=== PATIENT | male | born 1960 | race Caucasian/White ===

== ENCOUNTER → 2018-12-08 | Outpatient (CLI) | payer MEDICARE, OTHER ==
[~2018-12-08] MED LIST: REGADENOSON 0.4 MG/5 ML SYRINGE IV ONE
--- NOTE | 2018-12-08 11:52 | EST ---
EXERCISE STRESS AGE: 58 SEX: M HT: 6'0" WT: 217 PROTOCOL: Lexiscan Cardiolite Stress Test HEART RATE REST: 84 BLOOD PRESSURE REST: 110/69 MAXIMUM HEART RATE ACHIEVED: 96 MAXIMUM BLOOD PRESSURE: 104/67 INDICATIONS: Hypertension, coronary artery disease CLINICAL INFORMATION: Baseline EKG revealed normal sinus rhythm without significant ST-T changes. With Lexiscan administration, heart rate changed from 84-96 beats per minute. blood pressure changed from 110/69 to 104/67, and came back to baseline. Patient did not have any significant symptoms. By EKG criteria, this is an unremarkable Lexiscan stress test. The nuclear scan results which are more pertinent will be reported by the radiologist. MMODL / IJN: [id number] /
--- NOTE | 2018-12-08 13:48 | NM ---
EXAMINATION TYPE: NM stress lexiscan cardiolite DATE OF EXAM: 12/08/2018 COMPARISON: NONE HISTORY: Precordial chest pain and abnormal EKG TECHNIQUE: After the intravenous administration of 10.5 mCi Tc 99m Sestamibi - Cardiolite resting SP ECT images acquired 45 minutes post injection. The patient received 0.4mg Lexiscan, 26.2 mCi Tc 99m Sestamibi - Stress images obtained [address] injection FINDINGS: Review of stress and rest SPECT images demonstrates fixed decreased perfusion along the inferior wall which may reflect diaphragmatic attenuation artifact versus remote insult. There is stress-induced d ecreased perfusion noted involving the anteroseptal wall. Correlate for stress-induced ischemia. [place] d analysis shows normal wall motion with an estimated left ventricular ejection fraction of 57 %. IMPRESSION: There is stress-induced decreased perfusion noted involving the anteroseptal wall. Correlate for stre ss-induced ischemia.
== END | disposition home or self-care (01) ==
LOC: RADNMMAIN 07:42
PROVIDERS: ATTEND Family Medicine
DX: R94.39 Abnormal result of other cardiovascular function study (principal); I25.84 Coronary atherosclerosis due to calcified coronary lesion
CPT/HCPCS: 93017; 78452; A9500; J2785

== ENCOUNTER → 2018-12-24 | Outpatient (CLI) | payer MEDICARE ==
[2018-12-24 10:43] LABS: HCT 45.1 % (39.0-53.0); HGB 15.2 gm/dL (13.0-17.5); MCH 33.5 pg (25.0-35.0); MCHC 33.8 g/dL (31.0-37.0); Macrocytosis Slight; Mean Platelet Volume 6.7; Platelet Count 191 k/uL (150-450); RBC 4.55 m/uL (4.30-5.90); RDW 14.7 % (11.5-15.5); WBC 6.6 k/uL (3.8-10.6)
[2018-12-24 10:53] LABS: Potassium 4.8 mmol/L (3.5-5.1)
== END | disposition home or self-care (01) ==
LOC: LABPAT 09:39
PROVIDERS: ATTEND Internal Medicine Cardiovascular Disease
DX: Z01.812 Encounter for preprocedural laboratory examination (principal); I10 Essential (primary) hypertension; I25.10 Atherosclerotic heart disease of native coronary artery without angina pectoris
CPT/HCPCS: 36415; 80051; 82565; 84520; 85027

== ENCOUNTER 2019-01-06 07:46 | Day surgery (SDC) | payer MEDICARE ==
[2018-12-30 12:48] VITALS: BMI 31.1
[~2019-01-06 07:46] MED LIST changes: +ALPRAZolam 0.25 MG TAB PO PRN; +ASPIRIN 325 MG TAB PO ONE; -REGADENOSON 0.4 MG/5 ML SYRINGE IV ONE; +SODIUM CHLORIDE 0.9% 1,000 ML in EMPTY BAG 1 BAG IV ONE
[2019-01-06 08:57] LABS: Glucose,Whole Blood 149 mg/dL (75-99)
[2019-01-06 09:01] VITALS: PULSE 80; TEMP 98.1
[2019-01-06] MEDS ORDERED: IV FLUID CONTINUATION 950 ML IV ONE (09:10)
[2019-01-06] MEDS ORDERED: MIDAZOLAM (PF) 2 MG/2 ML VIAL IV ONE (09:34)
[2019-01-06] MEDS: MIDAZOLAM (PF) 2 MG/2 ML VIAL IV ONE ×2 (09:35→09:39)
[2019-01-06] MEDS ORDERED: LIDOCAINE 1% INJ 10MG/ML (20 ML MDV) SQ ONE ×2 (09:36→09:38)
[2019-01-06] MEDS ORDERED: RX INFO: IV CONTRAST WAS GIVEN 1 EACH MISC MISCELLANE PRN (10:04)
[2019-01-06] MEDS ORDERED: IOPAMIDOL-370 100ML BTL INJ ONE (10:06)
--- NOTE | 2019-01-06 10:29 | CC ---
CARDIAC CATHETERIZATION REPORT INDICATION: Abnormal stress test in a patient with multiple coronary risk factors with ischemia involving the anteroseptal wall. PROCEDURE NOTE: After obtaining informed consent, left heart catheterization and coronary angiogram were performed via the right femoral artery using standard Laura catheters. Patient tolerated the procedure well without any obvious immediate complications. A femoral angiogram was performed and decision was made for manual hemostasis as we were entering into the artery below the bifurcation. The patient received moderate conscious sedation. Total sedation time was 19 minutes. FINDINGS: 1. Left main coronary artery appears calcified but it is a small vessel, divides into LAD and circumflex coronary artery. They almost seem to have separate origins. 2. Circumflex coronary artery is a large dominant vessel that shows mild atherosclerotic plaque at the origin of a PLV branch. 3. LAD wraps around the apex of the heart shows some mild atherosclerotic plaque in its midportion without any focal hemodynamically significant lesion. 4. Right coronary artery is a small nondominant vessel that shows mild atherosclerotic plaque in the proximal part. CONCLUSION: Mild nonobstructive coronary artery disease. PLAN: Patient's stress test is positive stress test. His management is going to be in the form of risk factor modification and optimal medical therapy. MMODL / IJN: [id number] /
[2019-01-06 13:26] VITALS: RESP 20
[2019-01-06 17:05] VITALS: BP 124/77
== END 2019-01-06 17:00 | disposition home or self-care (01) ==
LOC: CATHCVL 07:46
PROVIDERS: ATTEND Internal Medicine Cardiovascular Disease
DX: I25.10 Atherosclerotic heart disease of native coronary artery without angina pectoris (principal); I10 Essential (primary) hypertension; E11.9 Type 2 diabetes mellitus without complications; E78.5 Hyperlipidemia, unspecified; Z87.891 Personal history of nicotine dependence; Z79.84 Long term (current) use of oral hypoglycemic drugs; Z79.82 Long term (current) use of aspirin; Z79.899 Other long term (current) drug therapy; Z88.0 Allergy status to penicillin
CPT/HCPCS: 93454; C1894; C1769; J2001; Q9967; J2250

== ENCOUNTER 2020-05-31 16:25 | Emergency (ER) | payer MEDICARE ==
[2020-05-31 16:31] VITALS: RESP 18
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
--- NOTE | 2020-05-31 17:25 | XR ---
EXAMINATION TYPE: XR Hip RT and AP Pelvis DATE OF EXAM: 05/31/2020 COMPARISON: NONE HISTORY: Right hip pain status post fall. TECHNIQUE: A single AP view of the pelvis is obtained. Two views of the right hip are obtained. FINDINGS: There is a moderately varus angulated basicervical fracture of the right femoral neck. No evidence of dislocation. No radiopaque foreign body. The bilateral hip joints are otherwise grossly preserved. IMPRESSION: Right femoral neck fracture.
[2020-05-31] MEDS ORDERED: MORPHINE SULFATE 4 MG/ML SYRINGE IVP STA (18:58)
[2020-05-31 19:42] VITALS: BP 136/78; PULSE 79; TEMP 98
== END 2020-05-31 19:42 | disposition other institution (70) ==
LOC: EC 16:25
DX: S72.001A Fracture of unspecified part of neck of right femur, initial encounter for closed fracture (principal); Z88.0 Allergy status to penicillin; Z89.511 Acquired absence of right leg below knee; X50.1XXA Overexertion from prolonged static or awkward postures, initial encounter; Y93.01 Activity, walking, marching and hiking
CPT/HCPCS: 73502; 99284; 96374; J2270

== ENCOUNTER → 2020-11-28 | Outpatient (CLI) | payer MEDICARE ==
--- NOTE | 2020-11-28 16:02 | BD ---
EXAMINATION TYPE: Axial Bone Density DATE OF EXAM: 11/28/2020 COMPARISON: NONE CLINICAL HISTORY: Rheumatoid arthritis Height: 5 FT 11 1/2 IN Weight: 218 FRAX RISK QUESTIONS: Alcohol (3 or more units per day): NO Family History (Parent hip fracture): NO Glucocorticoids (More than 3mos): NO (Ex: prednisone, prednisolone, methylprednisolone, dexamethasone, and hydrocortisone). History of Fracture in Adulthood: YES Secondary Osteoporosis: 1. Type 1 Diabetes: NO 2. Hyperthyroidism: NO 3. Menopause before 45: NA 4. Malnutrition: NO 5. Chronic liver disease: NO Rheumatoid Arthritis: YES Current Tobacco Use: NO RISK FACTORS HISTORY OF: Hip Fracture (Right/Left): RT HIP When: 2020 Spine Fracture: NO When: NO History of Wrist Fracture: NO Surgery to Spine/Hip(right/left)/Wrist (right/left): RT FX PLUS REPLACEMENT When: MAY 2020 Family History of Osteoporosis: NO Active: YES Diet low in dairy products/other sources of calcium: NO Postmenopausal woman: NA Take estrogen and/or progesterone medications: NA Lost more than 2 inches in height since high school: NO MEDICATIONS: Additional Medications: METHOTREXATE, METFORMIN, INFO SHANNA,FOLIC ACID, ENALAPRIL, ATORVASTATIN,ASPIRIN ,MULTI, Additional History: EXAM MEASUREMENTS: Bone mineral densitometry was performed using the [employer] System. Bone mineral density as measured about the Lumbar spine is: ----- L1-L4(G/cm2): 1.079 T Score Values are as follows: ----- L2: -1.2 ----- L3: -0.9 ----- L4: -0.6 ----- L1-L4: -0.8 BASELINE Bone mineral density about the L hip (g/cm2): 0.935 T Score values are as follows: -----L Neck: -0.7 -----L Total: 0.5 BASELINE IMPRESSION: Normal bone mineral density. NOTE: T-SCORE=SD OF THE YOUNG ADULT MEAN.
== END | disposition home or self-care (01) ==
LOC: RADBDWWP 08:35
PROVIDERS: ATTEND Family Medicine
DX: M06.9 Rheumatoid arthritis, unspecified (principal); M85.88 Other specified disorders of bone density and structure, other site
CPT/HCPCS: 77080

== ENCOUNTER → 2022-09-03 | Outpatient (CLI) | payer MEDICARE ==
--- NOTE | 2022-09-03 11:04 | CTL ---
EXAMINATION TYPE: CT Low Dose Lung DATE OF EXAM ORDERED: 09/03/2022 HISTORY: Z87.891. Lung cancer screening CT DLP: 101.[address] CTDI: 2.6 mGy Automated exposure control for dose reduction was used. SCREENING VISIT: First screening visit COMPARISON: None TECHNIQUE: Low dose computed tomography scan was performed through the chest at 1 mm thick sections a nd reconstructed images in multiple planes at 1 mm and [address] DIAGNOSTIC QUALITY: Satisfactory FINDINGS: LUNG NODULES: Spiculated 4.1 x 3.3 cm mass along the medial aspect of the right upper lobe abutting the azygous vei n (series 4, image 22). Left lower lobe 2 mm pulmonary nodule (series 3, image 185). LUNGS: COPD: Severity: Moderate centrilobular emphysematous changes which is most pronounced within the righ t upper lobe. Fibrosis: Severity: Scattered reticular pulmonary fibrotic changes throughout the lungs most pronounc ed involving the anterior aspect of the left upper lobe and medial aspect of the right upper lobe. Lymph nodes: No lymph nodes greater than 1 cm short axis Other findings: None RIGHT PLEURAL SPACE: Effusion: None Calcification: None Thickening: None Pneumothorax: None LEFT PLEURAL SPACE: Effusion: None Calcification: None Thickening: None Pneumothorax: None HEART: Heart Size: Normal Coronary Calcification: Moderate Pericardial Effusion: None OTHER FINDINGS: Upper abdomen: Post cholecystectomy changes. Bony thorax: No acute osseous abnormality. No aggressive osseous lesions. Supraclavicular region: None Other: None IMPRESSION: 1. Medial right upper lobe spiculated 4.1 cm mass highly concerning for malignancy. Further evaluatio n with CT chest with and without contrast or PET/CT is recommended. 2. Left lower lobe 2 mm pulmonary nodule. 3. Moderate COPD and pulmonary fibrotic changes. CT LUNG RAD AND CT CHEST RECOMMENDATION: Lung-Rad 4B or 4X Very Suspicious: Follow-up Chest CT with o r without contrast or PET/CT and/or tissue sampling. PET/CT may be used when there is a > 8 mm solid component. S Modifier (other clinically significant findings): None A Yellow level critical message alert has been initiated for Sarah Shelton MD via the [employer] Critical Results System on 09/03/2022 11:02 AM. This message alert has been sent to Sarah Shelton MD via the preferences provided by the clinician for the receipt of Radiology Critical Findings. Jason almanzar ID [id number].
== END | disposition home or self-care (01) ==
LOC: RADCTMAIN 09:21
PROVIDERS: ATTEND Internal Medicine
DX: Z12.2 Encounter for screening for malignant neoplasm of respiratory organs (principal); J44.9 Chronic obstructive pulmonary disease, unspecified; J84.10 Pulmonary fibrosis, unspecified; Z87.891 Personal history of nicotine dependence
CPT/HCPCS: 71271

== ENCOUNTER → 2022-09-14 | Outpatient (CLI) | payer MEDICARE ==
--- NOTE | 2022-09-14 15:43 | PE ---
EXAMINATION TYPE: PET CT fusion skull to thigh DATE OF EXAM: 09/14/2022 COMPARISON: Low-dose lung screening CT September 03, 2022 HISTORY: Solitary pulmonary nodule, abnormal CT. TECHNIQUE: Following the intravenous administration of 13.2 mCi of F-18 FDG, whole body images are p erformed from the skull base to the midthigh. Images are reviewed on the computer in the coronal, ax ial, and sagittal planes. Reconstructed rotating images are created on independent workstation and r eviewed on the computer. A localization and attenuation correction CT is performed in conjunction w ith the PET scan. Blood glucose level equals 142 SCAN: Initial Scan FINDINGS: SKULL BASE AND NECK: No areas of abnormal hypermetabolic uptake. CHEST, MEDIASTINUM, AND HILAR REGION: Background moderate to advanced underlying emphysematous change is redemonstrated. Persistent spiculated 4.1 x 2.8 cm right suprahilar mass has abnormal hypermetabo lic uptake, max SUV is 5.24 on axial image 66. No additional areas of abnormal hypermetabolic uptake including prominent but subcentimeter thoracic lymph nodes. ABDOMEN AND PELVIS: No abnormal hypermetabolic adrenal masses. Nonspecific bowel uptake. Normal excre tion. No areas of abnormal hypermetabolic uptake. OSSEOUS STRUCTURES: No areas of abnormal hypermetabolic uptake. OTHER CT: Severe three-vessel coronary artery calcifications. Cholecystectomy clips are present. Norm al-appearing appendix. Few diverticula in the sigmoid colon. Metallic hardware from right right hip s urgery is present. IMPRESSION: Abnormal hypermetabolic uptake in the spiculated right suprahilar mass consistent with ne oplasm. No suspicious adenopathy or metastatic disease seen.
== END | disposition home or self-care (01) ==
LOC: RADPETMAIN 08:19
PROVIDERS: ATTEND Internal Medicine Critical Care Medicine
DX: R91.1 Solitary pulmonary nodule (principal)
CPT/HCPCS: 78815; A9552

== ENCOUNTER → 2022-10-11 | Outpatient (CLI) | payer MEDICARE ==
[2022-10-11 15:51] LABS: African American GFR (CKD) >90 (>60 ml/min/1.73 sqM); Blood Urea Nitrogen 20 mg/dL (9-20); Non-African American GFR(CKD) >90 (>60 ml/min/1.73 sqM)
--- NOTE | 2022-10-12 13:44 | CT ---
EXAMINATION TYPE: CT chest w con DATE OF EXAM: 10/12/2022 COMPARISON: PET CT 09/14/[address] 09/03/2022 HISTORY: Lung mass. Dr. Ramos wants to perform surgery but concerned by proximity of vessel to mass. CT DLP: 498.50 mGycm Automated exposure control for dose reduction was used. CONTRAST: CT scan of the chest is performed with IV Contrast, patient injected with 100 mL of Isovue 300. FINDINGS: LUNGS: 4.3 x 2.4 x 3.5 cm spiculated right suprahilar mass consistent with neoplasm. Right upper lobe pulmonary arterial branch directly abuts the right lateral margin of the mass. The anterior margin o f the mass abuts the posterior wall of the superior vena cava without definite infiltration at this t radha. No additional masses are present. There is upper lobe emphysematous change which is moderate in degree. Mild scattered subpleural fibrosis is seen bilaterally. No evidence for pleural effusion. MEDIASTINUM: Prevascular space adenopathy measuring 1.1 cm as well as subcentimeter AP window lymph n odes. Low right paratracheal lymph node measures 1 cm in short axis. Subcarinal lymph node measures 9 mm in short axis. Thoracic aorta is of normal caliber. The heart is not enlarged. UPPER ABDOMEN: No significant abnormality appreciated. OTHER: No additional significant abnormality is seen. IMPRESSION: 1. Right suprahilar spiculated mass compatible with neoplasm. Mild mediastinal adenopathy.
== END | disposition home or self-care (01) ==
LOC: RADCTMAIN 15:15
PROVIDERS: ATTEND Internal Medicine Critical Care Medicine
DX: R91.1 Solitary pulmonary nodule (principal); R59.0 Localized enlarged lymph nodes
CPT/HCPCS: 82565; 84520; 71260; 36415; Q9967

== ENCOUNTER → 2022-11-15 | Outpatient (CLI) | payer MEDICARE ==
--- NOTE | 2022-11-15 15:40 | MR ---
EXAMINATION TYPE: MR brain wo/w con DATE OF EXAM: 11/15/2022 3:31 PM CLINICAL INDICATION:Male, 62 years old with history of C34.11 LUNG CANCER; Lung cancer, some memory l oss COMPARISON: None TECHNIQUE: Multi planar, multi sequence imaging was performed through the brain including: T1, T2, In version recovery, susceptibility weighted imaging and gradient echo imaging and Diffusion weighted im aging. The patient was then given intravenous contrast and multi planar, T1 fat-saturation images wer e obtained. IV Contrast: 10 cc Gadavist FINDINGS: The cardozo-white junctions, ventricular system, basal cisterns appear unremarkable. Diffusion-weighted imaging shows no evidence of restricted diffusion to suggest acute/subacute infarct. Intracranial art erial flow voids are maintained. Midline structures show no abnormality. The susceptibility weighted images do not reveal any evidence for micro-hemorrhage. After administration of gadolinium, no abnorm al enhancement is seen. The bone marrow signal is within normal limits. Paranasal sinuses and mastoid air cells: Mucosal thickening predominantly of the ethmoid air cells on the right greater than left and frontal sinus on the right. Visualized orbits: Orbital contents are intact. IMPRESSION: No evidence of intracranial mass, acute/subacute infarct, or abnormal enhancement.
== END | disposition home or self-care (01) ==
LOC: RADMRIMAIN 14:31
PROVIDERS: ATTEND Internal Medicine Hematology & Oncology
DX: C34.11 Malignant neoplasm of upper lobe, right bronchus or lung (principal)
CPT/HCPCS: 70553; A9585

== ENCOUNTER → 2022-12-31 | Outpatient (CLI) | payer MEDICARE ==
[2022-12-31 13:03] LABS: African American GFR (CKD) >90 (>60 ml/min/1.73 sqM); Blood Urea Nitrogen 32 mg/dL (9-20); Non-African American GFR(CKD) >90 (>60 ml/min/1.73 sqM)
--- NOTE | 2022-12-31 13:36 | CT ---
EXAMINATION TYPE: CT angio chest DATE OF EXAM: 12/31/2022 1:26 PM COMPARISON: 10/11/2022. HISTORY: Shortness of breath with known lung cancer. CT DLP: 380.6 mGycm Automated exposure control for dose reduction was used. CONTRAST: CTA scan of the thorax is performed with IV Contrast, patient injected with 100 mL of Isovue 370, pul monary embolism protocol. . FINDINGS: Mediastinum and Mikayla: Right suprahilar mass measuring 4.3 x 2.1 cm in diameter is very similar in siz e to the previous examination. Pleural and Pericardial spaces: There are no pleural or pericardial effusions. Upper Abdomen: The visualized upper abdomen is unremarkable. Cardiovascular: There is mild vascular calcification throughout the thoracic aorta without evidence o f aneurysmal dilation or dissection. There are moderate diffuse coronary artery calcifications. Pulmonary Artery: There are no filling defects in the pulmonary arteries. Lung Parenchyma and Airways: There is severe diffuse centrilobular emphysema. Bones: No fracture or aggressive osseous lesion. IMPRESSION: 1. No evidence of pulmonary embolism. 2. No evidence of thoracic aortic aneurysm or dissection. 3. Unchanged right suprahilar mass compatible with malignancy. 2. Severe emphysema. 3. Moderate coronary artery calcifications.
== END | disposition home or self-care (01) ==
LOC: RADCTMAIN 12:14
PROVIDERS: ATTEND Internal Medicine Hematology & Oncology
DX: C34.11 Malignant neoplasm of upper lobe, right bronchus or lung (principal); D61.810 Antineoplastic chemotherapy induced pancytopenia; I25.10 Atherosclerotic heart disease of native coronary artery without angina pectoris; J43.2 Centrilobular emphysema; M06.9 Rheumatoid arthritis, unspecified; R00.0 Tachycardia, unspecified; R22.2 Localized swelling, mass and lump, trunk; Z71.3 Dietary counseling and surveillance
CPT/HCPCS: 82565; 84520; 71275; 36415; Q9967

== ENCOUNTER → 2023-01-25 | Outpatient (CLI) | payer MEDICARE ==
--- NOTE | 2023-01-25 11:16 | PE ---
EXAMINATION TYPE: PET CT fusion skull to thigh DATE OF EXAM: 01/25/2023 CLINICAL INDICATION:Male, 62 years old with history of C34.11 lung NEOPLASM OF UPPER; TECHNIQUE: Following the intravenous administration of 11.71 mCi of F-18 FDG, whole body images are performed from the skull base to the midthigh. Images are reviewed on the computer in the coronal, axial, and sagittal planes. Reconstructed rotating images are created on independent workstation and reviewed on the computer. A non-contrast CT is performed in conjunction with the PET scan. Glucose level 154 mg/dL CT DLP: 506 mGycm, Automated exposure control for dose reduction was used. COMPARISON: CT 12/31/2022, PET/CT 09/06/2022, FINDINGS: Mediastinal SUV mean is 1.4. Hepatic parenchyma SUV mean is 2.3 SKULL BASE AND NECK: No suspicious radiotracer activity. CHEST, MEDIASTINUM, AND HILAR REGION: * Spiculated mass near the right superior perihilar region now measuring 3.2 x 3.6 cm previously 3.2 x 4.1 cm. Max SUV 9.9, previously 5.2. ABDOMEN AND PELVIS: No suspicious radiotracer activity. MUSCULOSKELETAL STRUCTURES: No suspicious radiotracer activity. OTHER CT: Severe three-vessel coronary artery calcifications. Moderate to severe emphysema changes wo rse in the right lung apex. Cholecystectomy clips are present. Normal-appearing appendix. Few diverti cula in the sigmoid colon. Metallic hardware from right right hip surgery is present. IMPRESSION: Interval increase in metabolic activity of the right perihilar mass. However, there minimal decrease in size on today's exam. No additional sites of abnormal FDG activity visualized. No lymphadenopathy.
== END | disposition home or self-care (01) ==
LOC: RADPETMAIN 08:04
PROVIDERS: ATTEND Internal Medicine Hematology & Oncology
DX: C34.11 Malignant neoplasm of upper lobe, right bronchus or lung (principal); R91.8 Other nonspecific abnormal finding of lung field
CPT/HCPCS: 78815; A9552

== ENCOUNTER → 2023-07-05 | Outpatient (CLI) | payer MEDICARE ==
[2023-07-05 11:46] LABS: African American GFR (CKD) >90 (>60 ml/min/1.73 sqM); Blood Urea Nitrogen 26 mg/dL (9-20); Non-African American GFR(CKD) >90 (>60 ml/min/1.73 sqM)
--- NOTE | 2023-07-05 12:48 | CT ---
Exam: CT Chest with contrast. Date: 07/05/2023. Comparison: 12/31/2022. History: Evaluate for metastatic disease. Technique: CT examination of the chest was performed following the intravenous administration of 100 mL of Isovue-300. Coronal and sagittal reformats were performed. CT dose lowering techniques were us ed, to include: automated exposure control, adjustment for patient size, and/or use of iterative rosalba nstruction. FINDINGS: Mediastinum and Mikayla: There is no axillary, mediastinal or hilar lymphadenopathy. Pleural and Pericardial spaces: There is a small right pleural effusion. Upper Abdomen: The visualized upper abdomen is unremarkable. Cardiovascular: There is mild vascular calcification within the thoracic aorta without evidence of an eurysmal dilation or dissection. There are severe diffuse coronary artery calcifications. Pulmonary Artery: There are no central pulmonary arterial abnormalities. The examination was not per formed to evaluate for pulmonary embolism. Lung Parenchyma and Airways: There appears to been a prior right upper lobectomy. There is moderate e mphysematous changes otherwise seen. There are no new pulmonary nodule seen in this time. Scattered i nflammatory airway changes are noted. Bones: No fracture or aggressive osseous lesion. IMPRESSION: 1. Prior surgical changes of right upper lobectomy with no residual or recurrent disease identified t his time. 2. Small right pleural effusion with thickened wall with some enhancement. There does appear to be so me foci of air within the pleural fluid posteriorly as this may be loculated. Infection or malignant effusion would be a possibility. 3. Emphysema. 4. Severe coronary artery calcifications.
== END | disposition home or self-care (01) ==
LOC: RADCTMAIN 10:26
PROVIDERS: ATTEND Internal Medicine Hematology & Oncology
DX: J90 Pleural effusion, not elsewhere classified (principal); C34.11 Malignant neoplasm of upper lobe, right bronchus or lung; J94.8 Other specified pleural conditions; J43.9 Emphysema, unspecified; I25.10 Atherosclerotic heart disease of native coronary artery without angina pectoris; D61.810 Antineoplastic chemotherapy induced pancytopenia; M06.9 Rheumatoid arthritis, unspecified; Z71.3 Dietary counseling and surveillance; Z90.2 Acquired absence of lung [part of]
CPT/HCPCS: 82565; 84520; 71260; 36415; Q9967

== ENCOUNTER → 2023-10-04 | Outpatient (CLI) | payer MEDICARE ==
[2023-10-04 11:31] LABS: African American GFR (CKD) 73 (>60 ml/min/1.73 sqM); Blood Urea Nitrogen 25 mg/dL (9-20); Non-African American GFR(CKD) 63 (>60 ml/min/1.73 sqM)
--- NOTE | 2023-10-04 12:04 | CT ---
EXAMINATION TYPE: CT chest w con DATE OF EXAM: 10/04/2023 COMPARISON: 07/05/2023 HISTORY: Lung ca follow up CT DLP: 444.60 mGycm Automated exposure control for dose reduction was used. CONTRAST: CT scan of the chest is performed with IV Contrast, patient injected with 100 mL of Isovue 300. FINDINGS: LUNGS: Stable bandlike density right upper lobe with adjacent surgical clips. Stable right lower lobe pleural thickening. Small effusion seen previously persists although appears smaller in size. No new nodules or masses seen. There are scattered subpleural fibrosis and paraseptal emphysema. MEDIASTINUM: There are no greater than 1 cm hilar or mediastinal lymph nodes. Severe coronary artery disease. No pericardial effusion is seen. Thoracic aorta is of normal caliber. The heart is not enl arged. UPPER ABDOMEN: No significant abnormality appreciated. OTHER: No additional significant abnormality is seen. IMPRESSION: 1. Partial right upper lobectomy change stable. No evidence for residual or recurrent disease. 2. Small right-sided pleural effusion with associated pleural thickening is slightly improved. 3. Emphysematous changes.
== END | disposition home or self-care (01) ==
LOC: RADCTMAIN 10:48
PROVIDERS: ATTEND Internal Medicine Hematology & Oncology
DX: J90 Pleural effusion, not elsewhere classified (principal); C34.11 Malignant neoplasm of upper lobe, right bronchus or lung; J92.9 Pleural plaque without asbestos; J43.9 Emphysema, unspecified; M06.9 Rheumatoid arthritis, unspecified; D61.810 Antineoplastic chemotherapy induced pancytopenia; Z71.3 Dietary counseling and surveillance; Z90.2 Acquired absence of lung [part of]
CPT/HCPCS: 82565; 84520; 71260; 36415; Q9967

== ENCOUNTER → 2024-01-07 | Outpatient (CLI) | payer MEDICARE ==
--- NOTE | 2024-01-28 13:28 | CT ---
Patient: Abhi Antoine Ordering Physician: Unknown, Unknown ID: [id number] Phone, Pager: Phone: N/A Pager: N/A : 1960 Age/Gender: 63Y, F Primary Location: N/A Procedure: CT Chest w Contrast Amrit dy Date: 01/07/2024 10:27:00 AM EXAMINATION TYPE: CT chest w con DATE OF EXAM: 01/07/2024 COMPARISON: No comparison available on downtime PACS. HISTORY: History of lung cancer, partial right lobectomy CT DLP: 659 mGycm, Automated exposure control for dose reduction was used. CONTRAST: Performed injected with 100 mL of Isovue 300. TECHNIQUE: Axial images were obtained at 5 mm thick sections. Reconstructed images are reviewed on [employer] computer in the coronal plane. FINDINGS: Portion of the thyroid visualized is normal. No suspicious lung nodules or focal infiltrates are present. Emphysematous changes are evident. No garcia spicious lung masses to suggest recurrent neoplasm. There is a 1.0 cm lymph node in the anterior mediastinum adjacent to the descending thoracic aorta. Series 2 image 26. A few additional scattered shoddy lymph nodes are present. The ascending aorta matthew meter at the level of the main pulmonary artery is 4.0 cm. The main pulmonary artery diameter at the bifurcation is 2.[address] sections are obtained through the upper abdomen. Abdomen is essentially unremarkable. IMPRESSION: 1. No suspicious changes to suggest recurrent neoplasm. 2. There is a solitary 1.0 cm lymph node in the anterior mediastinum. 3. No additional changes to suggest metastatic disease.
== END | disposition home or self-care (01) ==
LOC: RADCTMAIN 08:45
PROVIDERS: ATTEND Internal Medicine Hematology & Oncology
DX: C34.11 Malignant neoplasm of upper lobe, right bronchus or lung (principal); D61.810 Antineoplastic chemotherapy induced pancytopenia; M06.9 Rheumatoid arthritis, unspecified; Z71.3 Dietary counseling and surveillance
CPT/HCPCS: 71260; 36415; Q9967

== ENCOUNTER → 2024-07-28 | Outpatient (CLI) | payer MEDICARE ==
[2024-07-28 10:21] LABS: African American GFR (CKD) >90 (>60 ml/min/1.73 sqM); Blood Urea Nitrogen 25 mg/dL (9-20); Non-African American GFR(CKD) 82 (>60 ml/min/1.73 sqM)
--- NOTE | 2024-07-28 11:15 | CT ---
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 Sagittal and coronal reformats were created for review. MIP was performed on a separate workstation. Contrast used: mL of (None if empty) Oral contrast used: (None if empty) CT DLP: mGycm, Automated exposure control for dose reduction was used. FINDINGS: LUNGS/ PLEURA: Stable morphology to the lung parenchyma. Flat like atelectasis in the right upper susana g with surgical clips present. Scattered centrilobular and paraseptal emphysema changes. No focal con solidation, pneumothorax or pleural effusion. AIRWAY: Patent and unremarkable. HEART: Size within normal limits.Aortic valve repair. Moderate coronary artery calcifications present . MEDIASTINUM: No gross evidence of adenopathy. Stable mediastinal lymph nodes present which are not en larged. VASCULATURE: No aortic aneurysm. MUSCULOSKELETAL: Mild disc degeneration changes are present throughout the thoracolumbar spine second coretta to osteophyte formation and facet joint arthropathy. SOFT TISSUES/LYMPH NODES: Unremarkable. LOWER NECK: No significant findings. UPPER ABDOMEN: Cholecystectomy clips. IMPRESSION: No evidence for recurrence or new or enlarging mass//nodule or evidence for enlarging lymph nodes.. [facility] Diogo Murry, , 07/28/2024 11:12 AM
== END | disposition home or self-care (01) ==
LOC: RADCTMAIN 09:51
PROVIDERS: ATTEND Internal Medicine Hematology & Oncology
DX: Z03.89 Encounter for observation for other suspected diseases and conditions ruled out (principal); C34.11 Malignant neoplasm of upper lobe, right bronchus or lung
CPT/HCPCS: 82565; 84520; 71260; 36415; Q9967